=== PATIENT | male | born 1970 | race Caucasian/White ===

== ENCOUNTER 2017-08-22 21:52 | Emergency (ER) | payer SELFPAY ==
--- NOTE | 2017-08-22 22:27 | EDM.PDOC ---
ED HPI GENERAL MEDICAL PROBLEM - General Chief Complaint: General Stated Complaint: VOMITING HEADACHE Time Seen by Provider: 08/22/17 22:27 Source of Information: Reports: Patient History Limitations: Reports: No Limitations - History of Present Illness INITIAL COMMENTS - FREE TEXT/NARRATIVE: 47-year-old male presents the ED with a really bad headache. He reports that he gets migraines intermittently but the last really bad headache he had was about 3 years ago. States this headache started 2 days ago and has progressed in nature. Came on gradually ,not abruptly. It is constant and throbbing and he vomited up her supper tonight. He did keep down fluids earlier today. 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 Of note he is an insulin-dependent diabetic on insulin pump for the last 9 months. Diabetic for the last 9 years. Blood sugars have been under good control with insulin pump. He appreciates an abscess developing in his mid chest over the sternum. States she's always had a small nodule there but over the last 2 days it is become infected and grossly swollen clinically this appears to be an infected sebaceous cyst. He feels that is making him somewhat sick. Not sure if it's contributing to the migraine or not. Onset: Gradual Onset Date: 08/21/17 (Started early in the morning and progressively got worse as the day went on. Took Motrin and Aleve with very little relief of the pain.) Duration: Hour(s):, Constant Location: Reports: Head (Pounding throbbing headache.) Quality: Reports: Ache, Throbbing, Other Severity: Severe (Pounding. Described as 9 out of 10.) Improves with: Reports: Rest, Other (Dark room and not moving) Worsens with: Reports: Other (Very photosensitive.), Movement Context: Denies: Activity, Exercise, Lifting, Sick Contact, Trauma, Other Associated Symptoms: Reports: No Other Symptoms (Only at the site of a sore infected sebaceous cyst mid chest), Chest Pain, Diaphoresis, Fever/Chills, Headaches (Not sure if he's had a fever but has had some mild chills.), Loss of Appetite, Nausea/Vomiting (Vomited up her supper from the intensity of the headache.). Denies: Cough, cough w sputum, Shortness of Breath, Syncope Treatments RECORD PRESSMAN: Reports: Acetaminophen, NSAIDS (Aleve.) Middle Chest Pain Score (Numeric/FACES): 9 - Related Data Allergies Allergy/AdvReac Type Severity Reaction Status Date / Time ketorolac [From Toradol] Allergy Hives Verified 08/22/17 22:03 metoclopramide [From Reglan] Allergy Hives Verified 08/22/17 22:03 morphine Allergy Hives Verified 08/22/17 22:03 Home Meds: Home Meds Lisinopril/Hydrochlorothiazide [Lisinopril-Hctz 20-25 mg Tab] 1 each PO DAILY [History] Doxycycline [Vibramycin] 100 mg PO BID #20 tab 08/23/17 [Rx] oxyCODONE HCl/Acetaminophen [Percocet 5-325 mg Tablet] 1 - 2 each PO Q4H PRN # 10 tablet 08/23/17 [Rx] Past Medical History Cardiovascular History: Reports: Hypertension (On lisinopril partially to protect his kidneys from proteinuria.) Endocrine/Metabolic History: Reports: Diabetes, Type II (Time in 9 years. Has been on a insulin pump for the last 9 months with moderate marked improvement in his diabetes.) Social & Family History - Tobacco Use Smoking Status *Q: Former Smoker (Quit 9 months ago cold turkey.) Used Tobacco, but Quit: Yes Month/Year Tobacco Last Used: 8 months ago Second Hand Smoke Exposure: No - Caffeine Use Caffeine Use: Reports: Soda - Recreational Drug Use Recreational Drug Use: No - Living Situation & Occupation Living situation: Reports: Occupation: Employed ED ROS GENERAL - Review of Systems Review Of Systems: See Below Constitutional: Reports: Fever, Malaise, Fatigue, Decreased Appetite. Denies: Chills HEENT: Reports: Other Respiratory: Reports: No Symptoms Cardiovascular: Reports: No Symptoms Endocrine: Reports: Fatigue (a), Other (Sugars have been running a little bit higher than normal. Around 200.) GI/Abdominal: Reports: Nausea, Vomiting (Which she reports secondary to the severity of his migraine.) : Reports: No Symptoms Musculoskeletal: Reports: Back Pain (Occasional problems with back pain) Skin: Reports: Other (Current infective process mid anterior chest with erythema and swelling.) Neurological: Reports: Headache ( About over the last 48 hours). Denies: Trouble Speaking, Difficulty Walking, Change in Speech, Gait Disturbance Psychiatric: Reports: Anxiety (Moderately anxious about having his sebaceous cyst on his anterior chest incised and drained.) Hematologic/Lymphatic: Reports: No Symptoms Immunologic: Reports: No Symptoms ED EXAM, GENERAL - Physical Exam Exam: See Below Exam Limited By: No Limitations General Appearance: Alert, WD/WN, Anxious, Mild Distress Eye Exam: Bilateral Eye: Normal Inspection, PERRL, Other (For a photosensitive.) Throat/Mouth: Normal Inspection, Normal Lips, Normal Oropharynx, Other (Teeth are in severely bad condition.) Head: Atraumatic, Normocephalic Neck: Normal Inspection, Supple, Non-Tender, Full Range of Motion. No: Lymphadenopathy (L), Lymphadenopathy (R) Respiratory/Chest: No Respiratory Distress, Lungs Clear, Normal Breath Sounds Cardiovascular: Normal Peripheral Pulses, Regular Rate, Rhythm, No Edema, No Murmur, Other (Note he is hypertensive at the time of exam 203/100.) GI/Abdominal: Normal Bowel Sounds, Soft, Non-Tender, No Organomegaly, No Abnormal Bruit, No Mass, Pelvis Stable Extremities: Normal Inspection, Normal Range of Motion, Non-Tender, No Pedal Edema, Other (Previous surgical scar in her medial right thigh from a infected sebaceous cyst with secondary cellulitis development.) Neurological: Alert, Oriented, CN II-XII Intact, Normal Cognition, Normal Gait, No Motor/Sensory Deficits Psychiatric: Normal Mood, Anxious Skin Exam: Warm, Dry, Intact, Rash (Has tinea crura in both groins or jock itch. Recommended Lamisil cream every night at bedtime for at least 3 weeks to eradicate this and then as needed.), Other (He has an infected sebaceous cyst mid anterior chest. Over the sternum. He states she's had a sebaceous cyst or a lump the size in this area for many years. Over the last 2-3 days it has increased dramatically in size become more painful and red and swollen. Particularly over the last 12 hours.) ED I&D PROCEDURES - I&D Site: anterior mid chest Skin prep: Chlorhexidine (Hibiciens) Local anesthesia - Lidocaine (Xylocaine): 1% Plain Local Anesthetic Volume: 3cc Area Incised With: 15 Blade Drainage: Purulent, Small Amount (4-5mls ) Probed to Break Up Loculations: Yes Packed With: Other (1/2 tube gauze soaked in saline. ) Sterile Dressing: Adhesive Dressing (duoderm. ) Complications: No (d) Course - Vital Signs Last Recorded V/S: Last Vital Signs Temp 36.2 C 08/22/17 21:59 Pulse 96 08/22/17 21:59 Resp 18 08/22/17 21:59 BP 203/100 H 08/22/17 21:59 Pulse Ox 98 08/22/17 21:59 - Orders/Labs/Meds Orders: Active Orders 24 hr Category Date Time Status Blood Glucose Check, Bedside [RC] ONETIME Care 08/22/17 22:36 Active CULTURE ANAEROBIC + SMEAR [RM] Stat Lab 08/23/17 01:01 Received CULTURE BLOOD [BC] Stat Lab 08/22/17 23:00 Received CULTURE BLOOD [BC] Stat Lab 08/22/17 23:00 Received Sodium Chloride 0.9% [Normal Saline] 1,000 ml Med 08/22/17 22:45 Active IV ASDIRECTED Blood Culture x2 Reflex Set [OM.PC] Stat Oth 08/22/17 22:36 Ordered Medication Orders Sodium Chloride (Normal Saline) 1,000 mls @ 500 mls/hr IV ASDIRECTED KALEY Last Admin: 08/22/17 22:54 Dose: 500 mls/hr Labs: Laboratory Tests 08/22/17 08/22/17 08/22/17 Range/Units 22:50 23:00 23:00 WBC 9.98 H (4.23-9.07) K/mm3 RBC 5.39 (4.63-6.08) M/mm3 Hgb 15.3 (13.7-17.5) gm/L Hct 45.4 (40.1-51.0) % MCV 84.2 (79.0-92.2) fl MCH 28.4 (25.7-32.2) pg MCHC 33.7 (32.2-35.5) g/dl RDW Std Deviation 41.9 (35.1-43.9) fL Plt Count 246 (163-337) K/mm3 MPV 11.0 (9.4-12.3) fl Neutrophils % (Manual) 67 H (40-60) % Band Neutrophils % 0 (0-10) % Lymphocytes % (Manual) 21 (20-40) % Atypical Lymphs % 2 % Monocytes % (Manual) 9 (2-10) % Eosinophils % (Manual) 1 (0.8-7.0) % Basophils % (Manual) 0 L (0.2-1.2) Platelet Estimate Adequate Plt Morphology Comment Normal RBC Morph Comment Normal ESR 48 H (0-15) mm/hr Sodium (136-145) mEq/L Potassium (3.5-5.1) mEq/L Chloride (98-107) mEq/L Carbon Dioxide (21-32) mEq/L Anion Gap (5-15) BUN (7-18) mg/dL Creatinine (0.7-1.3) mg/dL Est Cr Clr Drug Dosing mL/min Estimated GFR (MDRD) (>60) mL/min BUN/Creatinine Ratio (14-18) Glucose (74-106) mg/dL POC Glucose 225 H (70-105) mg/dL Calcium (8.5-10.1) mg/dL Magnesium (1.8-2.4) mg/dl Total Bilirubin (0.2-1.0) mg/dL AST (15-37) U/L ALT (16-63) U/L Alkaline Phosphatase (46-116) U/L C-Reactive Protein (<1.0) mg/dL Total Protein (6.4-8.2) g/dl Albumin (3.4-5.0) g/dl Globulin gm/dL Albumin/Globulin Ratio (1-2) //18 Range/Units 23:00 WBC (4.23-9.07) K/mm3 RBC (4.63-6.08) M/mm3 Hgb (13.7-17.5) gm/L Hct (40.1-51.0) % MCV (79.0-92.2) fl MCH (25.7-32.2) pg MCHC (32.2-35.5) g/dl RDW Std Deviation (35.1-43.9) fL Plt Count (163-337) K/mm3 MPV (9.4-12.3) fl Neutrophils % (Manual) (40-60) % Band Neutrophils % (0-10) % Lymphocytes % (Manual) (20-40) % Atypical Lymphs % % Monocytes % (Manual) (2-10) % Eosinophils % (Manual) (0.8-7.0) % Basophils % (Manual) (0.2-1.2) Platelet Estimate Plt Morphology Comment RBC Morph Comment ESR (0-15) mm/hr Sodium 140 (136-145) mEq/L Potassium 3.7 (3.5-5.1) mEq/L Chloride 102 (98-107) mEq/L Carbon Dioxide 27 (21-32) mEq/L Anion Gap 14.7 (5-15) BUN 14 (7-18) mg/dL Creatinine 1.1 (0.7-1.3) mg/dL Est Cr Clr Drug Dosing 92.10 mL/min Estimated GFR (MDRD) > 60 (>60) mL/min BUN/Creatinine Ratio 12.7 L (14-18) Glucose 183 H (74-106) mg/dL POC Glucose (70-105) mg/dL Calcium 8.9 (8.5-10.1) mg/dL Magnesium 1.6 L (1.8-2.4) mg/dl Total Bilirubin 0.3 (0.2-1.0) mg/dL AST 10 L (15-37) U/L ALT 38 (16-63) U/L Alkaline Phosphatase 112 (46-116) U/L C-Reactive Protein 2.1 H* (<1.0) mg/dL Total Protein 8.1 (6.4-8.2) g/dl Albumin 3.5 (3.4-5.0) g/dl Globulin 4.6 gm/dL Albumin/Globulin Ratio 0.8 L (1-2) Meds: Medications Generic Name Dose Route Start Last Admin Trade Name Freq PRN Reason Stop Dose Admin Sodium Chloride 1,000 mls @ 500 mls/hr 08/22/17 22:45 08/22/17 22:54 Normal Saline IV 500 mls/hr ASDIRECTED KALEY Administration Discontinued Medications Generic Name Dose Route Start Last Admin Trade Name Freq PRN Reason Stop Dose Admin Diphenhydramine HCl 25 mg 08/23/17 01:10 08/23/17 01:28 Benadryl IVPUSH 08/23/17 01:11 25 mg ONETIME ONE Administration Doxycycline Hyclate 200 mg 08/23/17 05:52 08/23/17 06:04 Vibramycin PO 08/23/17 05:53 200 mg ONETIME ONE Administration Fentanyl 100 mcg 08/23/17 01:09 Sublimaze IVPUSH 08/23/17 01:10 ONETIME ONE Hydromorphone HCl 1 mg 08/22/17 22:45 08/22/17 23:04 Dilaudid IVPUSH 08/22/17 22:46 1 mg ONETIME ONE Administration Hydromorphone HCl 1 mg 08/22/17 23:56 08/23/17 00:03 Dilaudid IVPUSH 08/22/17 23:57 1 mg ONETIME ONE Administration Promethazine HCl 25 mg/ Sodium 51 mls @ 100 mls/hr 08/22/17 22:47 08/22/17 23 :05 Chloride IV 08/22/17 23:17 100 mls/hr ONETIME ONE Administration Clindamycin Phosphate 600 mg/ 104 mls @ 100 mls/hr 08/22/17 23:17 08/22/17 23 :43 Sodium Chloride IV 08/23/17 00:19 100 mls/hr ONETIME ONE Administration Lidocaine HCl 10 ml 08/22/17 23:17 08/23/17 00:06 Xylocaine 1% INJECT 08/22/17 23:18 10 ml ONETIME ONE Administration Ondansetron HCl 4 mg 08/23/17 01:09 08/23/17 01:30 Zofran IVPUSH 08/23/17 01:10 4 mg ONETIME ONE Administration - Radiology Interpretation Free Text/Narrative:: 47-year-old male presents the ED with a severe headache. He states he is prone to migraines but hasn't had a bad one for about 3 years. This headache started yesterday and is progressively intensified. Today he vomited up her supper due to the intensity of the headache. He is very photosensitive. He did have adequate fluid and food intake earlier today. Headache is described as involving both sides of his had constant throbbing and pounding. As mentioned above is very sensitive to light and sound. A difference in the headache as compared with his parents in the past. Denies any visual acuity changes. No problems with his gait. Can drive the car earlier the today. Second problem is his infected area on his anterior mid chest. This developed over the last 48 hours. States he had a pea-sized lesion in this area for many years but over the last 48 hours it progressively got larger in size more painful and now he has an area of erythema anterior mid chest. It had has not oozed any discharged. - Re-Assessments/Exams Free Text/Narrative Re-Assessment/Exam: 08/22/17 23:56 headache is still about a 6 out of 10. Will repeat Dilaudid 1 mg IV. Ultrasound of the abscess on his left mid chest reveals about 5 cm of purulent material in an abscess. Therefore will benefit from incision and drainage which will be performed. 08/23/17 01:10: Incision and drainage performed of sebaceous cyst mid anterior chest. This is done under 1% lidocaine. Patient is extremely apprehensive about the procedure. However he tolerated quite well. I was able to incise through the skin with a 15 blade and then opened the lesion with mosquito forceps.. Material obtained and cultures were obtained. Removed a good portion of the sebum and from within the wound is well. Was packed with 1 inch of saline soaked Tubegauz. Duodenum dressing applied. Headache is still 6 out of 10. Will give him Benadryl 25 mg IV and Zofran 4 mg IV and see how he does. BP is currently 177/88. 08/23/17 04:57 patient has been sleeping for the last 3 hours. Also remain stable. O2 sats 95% 08/23/17 05:52 patient is now help and alert. He is up to the bathroom. Still has a mild to moderate headache. Does have some pain at the incision site as well. Given to doxycycline tablets at this time 100 mg 2. Will send him home with a few Percocet tablets for pain relief for the next day or 2 until the inflammation swelling settles down and his abscess. Departure - Departure Time of Disposition: 05:53 Disposition: Home, Self-Care 01 Condition: Fair Clinical Impression: Infected sebaceous cyst of skin, Encounter for incision and drainage procedure Migraine headache Qualifiers: Migraine type: without aura Status migrainosus presence: without status migrainosus Intractability: not intractable Qualified Code(s): G43.009 - Migraine without aura, not intractable, without status migrainosus - Discharge Information Prescriptions: Doxycycline [Vibramycin] 100 mg PO BID #20 tab oxyCODONE HCl/Acetaminophen [Percocet 5-325 mg Tablet] 1 - 2 each PO Q4H PRN # 10 tablet PRN Reason: pain relief. Instructions: Migraine Headache, [id number], Epidermal Cyst, [id number] Referrals: PCP,Not In Area [Primary Care Provider] - Forms: ED Department Discharge Additional Instructions: Evaluation the emergency room today in regards to 2 problems 1 presentation with quite a severe headache with associated nausea and vomiting described as migraine. Apparently by history you're experiencing intermittent migraine headaches. You're treated with intravenous fluids and Dilaudid 1 mg IV 2 doses for pain management as well as antinausea medication Phenergan and Zofran. Second problem was an infected sebaceous cyst mid anterior chest over the sternum. This was starting to cause significant infective process and due to your diabetic state was felt prudent to proceed with incision and drainage. Removed a good portion of the sebaceous cyst. Cultures were obtained from the wound. It is packed with 1 inch of saline soaked Tubegauz. Due to your dressing placed over this. You can shower. The Tubegauze packing needs to be removed in 48 hours time. I would suggest on the morning of August 25. Then apply antibody, ointment such as bacitracin or Polysporin to the wound at least once daily. You' re given a dose of antibiotics clindamycin 600 mg intravenously while in the emergency department. Need to take oral antibiotics Doxycycline 100 mg twice daily for the next 10 days to clear up infection completely. First dose is to be taken this evening. Initial dose was provided in the ED this morning. May use Motrin 600 mg every 6 hours needed for pain relief. I did give you a few Percocet tablets that you can take for continued headache relief and relief of pain from your incision and drainage site for the next few days. - My Orders Last 24 Hours: My Active Orders 08/22/17 22:36 Blood Glucose Check, Bedside [RC] ONETIME Blood Culture x2 Reflex Set [OM.PC] Stat 08/22/17 22:45 Sodium Chloride 0.9% [Normal Saline] 1,000 ml IV ASDIRECTED 08/22/17 23:00 CULTURE BLOOD [BC] Stat CULTURE BLOOD [BC] Stat 08/23/17 01:01 CULTURE ANAEROBIC + SMEAR [RM] Stat - Assessment/Plan Last 24 Hours: My Active Orders 08/22/17 22:36 Blood Glucose Check, Bedside [RC] ONETIME Blood Culture x2 Reflex Set [OM.PC] Stat 08/22/17 22:45 Sodium Chloride 0.9% [Normal Saline] 1,000 ml IV ASDIRECTED 08/22/17 23:00 CULTURE BLOOD [BC] Stat CULTURE BLOOD [BC] Stat 08/23/17 01:01 CULTURE ANAEROBIC + SMEAR [RM] Stat
[2017-08-22] MEDS ORDERED: Sodium Chloride 0.9% 1,000 ML IV SCH (22:45)
[2017-08-22] MEDS ORDERED: HYDROmorphone 0.5 MG/0.5 ML SYRINGE IVPUSH ONE ×2 (22:45→23:56)
[2017-08-22] MEDS ORDERED: Promethazine 25 MG in Sodium Chloride 0.9% 50 ML IV ONE (22:47)
[2017-08-22] MEDS ORDERED: Clindamycin Phosphate 600 MG in Sodium Chloride 0.9% 100 ML IV ONE (23:17)
[2017-08-22] MEDS ORDERED: Lidocaine 1% 10 ML MDV INJECT ONE (23:17)
[2017-08-23] MEDS ORDERED: Ondansetron 4 MG/2 ML SDV IVPUSH ONE (01:09)
[2017-08-23] MEDS ORDERED: fentaNYL 100 MCG/2 ML SDV IVPUSH ONE (01:09)
[2017-08-23] MEDS ORDERED: diphenhydrAMINE 50 MG/ML SDV IVPUSH ONE (01:10)
[2017-08-23] MEDS ORDERED: Doxycycline 100 MG Cap PO ONE (05:52)
== END 2017-08-23 06:10 | disposition home or self-care (01) ==
LOC: JD.ED 21:52
DX: L72.3 Sebaceous cyst (principal); G43.009 Migraine without aura, not intractable, without status migrainosus; I10 Essential (primary) hypertension; E11.9 Type 2 diabetes mellitus without complications; Z88.6 Allergy status to analgesic agent; Z88.5 Allergy status to narcotic agent; Z87.891 Personal history of nicotine dependence
CPT/HCPCS: 10060; 36415; 80053; 82962; 83735; 85007; 85027; 85652; 86140; 87040; 87075; 87205; 96361; 96365; 96367; 96375; 96376; 99284; A9270; J1170; J1200; J2405; J2550; J7030; J7040; J7050